=== PATIENT | female | born 1980 | race Caucasian/White ===

== ENCOUNTER → 2017-10-07 07:40 | Outpatient (CLI) | payer BC ==
[~2017-10-07 07:40] MED LIST: ADVIL200 MG PO; MULTIPLE VITAMI1 TA1 PO; NEXPLANON
[2017-10-12 10:58] VITALS: BMI 22.3
== END | disposition home or self-care (01) ==
LOC: D.CT 07:40 → EDBD 08:00
DX: N20.0 Calculus of kidney (principal)

== ENCOUNTER 2017-10-12 10:05 | Day surgery (SDC) | payer BC ==
[2017-10-11 16:29] LABS: BASOPHILS 0.9 % (0-2); EOSINOPHILS 2.6 % (0-7); HEMATOCRIT 40.8 % (36.0-48.0); HEMOGLOBIN 13.9 g/dL (12-16); IMMATURE GRANULOCYTES 0.1 % (0-5); LYMPHOCYTES 29.3 % (15-50); MCH 33.3 pg (26.0-34.0); MCHC 34.1 g/dL (31.0-37.0); MCV 97.6 fL (80.0-100.0); MEAN PLATELET VOLUME 9.3 fL (7.4-10.4); MONOCYTES 7.4 % (2-11); NEUTROPHILS 59.7 % (40-80); PLATELET COUNT 234 10x3/uL (130-400); RBC 4.18 10x6/uL (4.00-5.40); RDW 12.5 % (11.5-14.5); WBC 8.1 10x3/uL (4.8-10.8)
[~2017-10-12] VITALS: Ht 162.6 cm; Wt 59.0 kg
--- NOTE | ~2017-10-12 | OP ---
PATIENT NAME: MINO CHAVEZ MEDICAL RECORD: [id number] LOCATION:[facility] ADMISSION DATE: SURGEON: GRACIE CRESPO MD DATE OF OPERATION: 10/12/2017 PREOPERATIVE DIAGNOSIS: Ovarian mass. POSTOPERATIVE DIAGNOSIS: Right ovarian cyst. PROCEDURES: 1. Diagnostic laparoscopy. 2. Right cystectomy. SURGEON: Gracie Crespo MD ANESTHESIOLOGIST: Miguel Leong MD ANESTHETIC: General anesthetic with endotracheal intubation. FINDINGS: Uterus and her left ovary is unremarkable. Both tubes are unremarkable. Right ovary has approximately 3.5 to 4 cm simple appearing cyst. There is some blood-tinged fluid in the cul-de-sac. SPECIMENS REMOVED: Ovarian cyst wall. SPECIMEN DISPOSITION: Pathology. ESTIMATED BLOOD LOSS: Less than or equal to 50 cc. FLUIDS: 600 cc lactated Ringer's. URINE OUTPUT: Quantity sufficient void prior to the procedure. COMPLICATIONS: None. DRAINS: None. INDICATION: The patient is a 37-year-old female with intense pelvic pain. Workup has included an ultrasound, which shows a pelvic mass. The patient [place] and is concerned about worsening condition in [place]. The patient desires aggressive management. DESCRIPTION OF PROCEDURE: After informed consent was assured, the patient was taken to the operating room where anesthetic was obtained without difficulty. The patient is now prepped and draped in usual sterile fashion. Incision was made at the umbilicus to accommodate a 5 mm trocar which is inserted without difficulty and pneumoperitoneum developed. Accessory ports were placed in the midline and right lower quadrant. Through the midline port, a grasper is inserted and the hilum of the right ovary is held firm. The ovary and cyst was maneuvered to allow Bovie cautery to incise the cyst wall and cyst capsule. Straw-colored fluid is removed. The cyst wall was now peeled free from the capsule and sent to pathology. Bleeding vessels cauterized and pneumoperitoneum was released. Accessory trocars were removed and then the primary trocars were removed after release of full pneumoperitoneum. The skin was reapproximated with subcuticular stitch and sterile dressing applied. Sponge, lap, and needle OPERATIVE REPORT [id number] MINO CHAVEZ counts were correct times 2. TRANSINT:[id number] Voice Confirmation ID: [id number] DOCUMENT ID: [id number] GRACIE CRESPO MD at 0723 CC: [id number] DICTATION DATE: 10/12/17 1508 [place]: 10/12/17 1530 [facility] 10/12/17 [id number] [place] [address]
[~2017-10-12 10:05] MED LIST changes: -NEXPLANON
[2017-10-12] MEDS ORDERED: NEXPLANON (10:44)
[2017-10-12 10:50] LABS: HCG URINE NEGATIVE (NEGATIVE)
[2017-10-12 10:58] VITALS: BP 102/53; Ht 162.6 cm; Wt 59.0 kg
== END 2017-10-12 17:37 | disposition home or self-care (01) ==
LOC: D.OPS 10:05 → D.PAN 12:00 → D.OPS 17:37
PROVIDERS: Obstetrics & Gynecology
DX: N83.201 Unspecified ovarian cyst, right side (principal); Z01.812 Encounter for preprocedural laboratory examination